=== PATIENT | female | born 1965 | race Two or more races ===

== ENCOUNTER → 2024-04-04 | Outpatient (CLI) | payer BC, SELFPAY ==
--- NOTE | 2024-04-04 11:15 | XR_ITS ---
Examination: Diagnostic digital mammography, unilateral, left Computer aided detection 3-D breast Tomosynthesis, unilateral Date and time of exam: April 04, 2024 1138 hours INDICATIONS: 10:00 nodule left breast on ultrasound left breast July 15, 2023, 7 mm by 8 mm Technique: Nonmagnified MLO, CC views of the left breast have been obtained, reconstructed from 3-D Tomosynthesis images. R2 computer aided detection program utilized for evaluation of suspicious masses and/or abnormal calcifications. 3-D Tomosynthesis images obtained. Findings: The breast is heterogeneously dense, which may obscure small masses Nodule inner left breast is confirmed on the follow-up images, 8 mm, circumscribed Impression: BI-RADS Category 3: Probably benign findings One additional 6 month left breast sonogram follow-up is needed to document stability of nodule described above
--- NOTE | 2024-04-04 11:23 | XR_ITS ---
Examination: Breast ultrasound, unilateral, left complete Date and time of exam: April 04, 2024 1127 hours INDICATIONS: 10:00 nodule 8 x 5 x 7 mm on ultrasound July 15, 2023 Technique: Real-time solares scale ultrasonographic imaging performed left breast including all 4 quadrants as well as nipple retroareolar and axillary region. Findings: 10:00 oval mass lobular margins 9 x 5 x 8 mm IMPRESSION: BI-RADS Category 2: Benign findings
== END | disposition home or self-care (01) ==
PROVIDERS: PCP Family Medicine; Referring Provider Family Medicine; Visit Provider Family Medicine
DX: R92.332 Mammographic heterogeneous density, left breast (principal)
CPT/HCPCS: 76641; 77061; 77065; G0279

== ENCOUNTER → 2024-12-21 | Outpatient (CLI) | payer BC, SELFPAY ==
--- NOTE | 2024-12-21 12:30 | XR_ITS ---
Examination: Breast ultrasound, unilateral, left Date and time of exam: December 21, 2024, 1315 hours INDICATIONS: Left breast sonogram April 04, 2024 10:00 nodule 9 x 8 mm left breast burning sensation 2 months, family history of breast cancer Technique: Real-time solares scale ultrasonographic imaging performed left breast including all 4 quadrants as well as nipple retroareolar and axillary region. Findings: 10:00 nodule lobular margins 10 x 8 mm 10:00 cyst lobular margins 5 x 3 mm IMPRESSION: BI-RADS Category 3: Probably benign findings Recommend 1 additional 6-month left breast sonogram follow-up to document stability of 10:00 nodule described above
== END | disposition home or self-care (01) ==
LOC: CDIM 12:32
PROVIDERS: PCP Family Medicine; Referring Provider Family Medicine; Visit Provider Family Medicine
DX: N63.0 Unspecified lump in unspecified breast (principal)
CPT/HCPCS: 76641